=== PATIENT | male | born 1990 | race Caucasian/White ===

== ENCOUNTER 2016-06-26 17:03 | Emergency (ER) | payer OTHER ==
[~2016-06-26] VITALS: Ht 175.3 cm; Wt 90.7 kg
[~2016-06-26 17:03] MED LIST: ALPR1TAB2; HYDR-1421
[2016-06-26 21:18] VITALS: BP 148/86
[2016-06-27] MEDS ORDERED: HYDROcodone-ACET 10/325MG TAB PO ONE (00:30)
[2016-06-27] MEDS ORDERED: ALPRAZolam 0.5 MG TAB PO ONE (00:30)
== END 2016-06-27 01:15 | disposition home or self-care (01) ==
LOC: ER 17:07
DX: G89.29 Other chronic pain (principal); M54.9 Dorsalgia, unspecified; F41.9 Anxiety disorder, unspecified; F17.210 Nicotine dependence, cigarettes, uncomplicated; Z76.0 Encounter for issue of repeat prescription

== ENCOUNTER 2017-03-22 00:29 | Emergency (ER) | payer MEDICAID, OTHER ==
[~2017-03-22] VITALS: Ht 177.8 cm; Wt 86.2 kg
[2017-03-22 00:57] VITALS: BP 144/75
[2017-03-22] MEDS ORDERED: HYDROcodone-ACET 10/325MG TAB PO ONE (01:15)
[2017-03-22] MEDS ORDERED: CYCLOBENZAPRINE HCL 10 MG TAB PO ONE (03:45)
[2017-03-22] MEDS ORDERED: CYCLOBENZAPRINE HCL 10 MG TAB ONE (03:51)
== END 2017-03-22 04:00 | disposition home or self-care (01) ==
LOC: ER 00:29 → EDBD 00:29 → ER 04:00
DX: M54.12 Radiculopathy, cervical region (principal); F17.210 Nicotine dependence, cigarettes, uncomplicated; I10 Essential (primary) hypertension
CPT/HCPCS: 72040

== ENCOUNTER 2017-11-15 17:27 | Emergency (ER) | payer MEDICAID ==
[~2017-11-15] VITALS: Ht 177.8 cm; Wt 95.3 kg
[2017-11-15] MEDS ORDERED: SODIUM CHLORIDE 0.9% 1,000 ML IVB ONE (17:55)
[2017-11-15 18:14] LABS: Basophils # (auto) 0 uL; Basophils % (auto) 0.4 % (0.0-2.0); Eosinophils # (auto) 0.1 uL; Eosinophils % (auto) 1.4 % (0.0-7.0); Hematocrit 44.1 % (41.0-53.0); Hemoglobin 14.9 g/dL (13.5-17.5); Lymphocytes # (auto) 2.6 uL; Mean Corpuscular Hemoglobin 31.1 pg (28.0-32.0); Mean Corpuscular Hgb Conc. 33.7 g/dL (32.0-36.0); Mean Corpuscular Volume 92.4 fL (80.0-100.0); Monocytes # (auto) 0.4 uL; Monocytes % (auto) 3.7 % (0.0-12.0); Neutrophils # (auto) 6.5 uL; Neutrophils % (auto) 67.5 % (37.0-80.0); Platelet Count (auto) 315 10^3/uL (140-450); Red Blood Cells 4.77 10^6/uL (4.5-5.90); White Blood Cell 9.6 10^3/uL (4.4-10.8)
[2017-11-15 18:27] LABS: Alanine Aminotransferase 58 U/L (16-61); Albumin 4.3 g/dL (3.4-5.0); Alkaline Phosphatase 56 U/L (45-117); Anion Gap 6 (5-15); Aspartate Aminotransferase 22 U/L (15-37); BUN/Creatinine Ratio 13.4; Bilirubin, Total 0.2 mg/dL (0.2-1.0); Blood Alcohol < 3.0 mg/dL (0-5); Blood Urea Nitrogen 15 mg/dL (7-18); Calcium 8.3 mg/dL (8.5-10.1); Carbon Dioxide 26 mmol/L (21-32); Chloride 108 mmol/L (98-107); GFR African American 101 mL/min; GFR Non-African American 84 mL/min; Glucose 118 mg/dL (74-106); Potassium 3.8 mmol/L (3.5-5.1); Sodium 140 mmol/L (136-145); Total Protein 7.5 g/dL (6.4-8.2)
[2017-11-15 20:13] LABS: Amphetamine Screen, Urine NEGATIVE (NEGATIVE); Barbiturate Scree,Urine NEGATIVE (NEGATIVE); Benzodiazephine Screen, Urine POSITIVE (NEGATIVE); Cannabinoid Screen, Urine POSITIVE (NEGATIVE); Cocaine Screen, Urine NEGATIVE (NEGATIVE); Opiate Scree,Urine NEGATIVE (NEGATIVE); Phencyclidine Screen, Urine NEGATIVE (NEGATIVE)
[2017-11-15 20:23] VITALS: BP 115/83
== END 2017-11-15 20:24 | disposition home or self-care (01) ==
LOC: ER 17:27 → EDBD 17:27 → ER 20:24
DX: T40.2X1A Poisoning by other opioids, accidental (unintentional), initial encounter (principal); I10 Essential (primary) hypertension; F17.210 Nicotine dependence, cigarettes, uncomplicated; F12.10 Cannabis abuse, uncomplicated; Z79.899 Other long term (current) drug therapy; Y92.89 Other specified places as the place of occurrence of the external cause
CPT/HCPCS: 36415; 80053; 80307; 80320; 85025; 94761

== ENCOUNTER 2018-02-12 23:08 | Emergency (ER) | payer MEDICAID ==
[~2018-02-12] VITALS: Ht 175.3 cm; Wt 95.3 kg
[2018-02-13 01:13] VITALS: BP 137/63
[2018-02-13] MEDS ORDERED: IBUPROFEN 600 MG TAB PO ONE (02:15)
[2018-02-13] MEDS ORDERED: HYDROcodone-ACET 10/325MG TAB PO ONE (02:15)
== END 2018-02-13 02:49 | disposition home or self-care (01) ==
LOC: EDBD 23:08 → ER 23:08
DX: S00.83XA Contusion of other part of head, initial encounter (principal); I10 Essential (primary) hypertension; F17.210 Nicotine dependence, cigarettes, uncomplicated; F12.90 Cannabis use, unspecified, uncomplicated; Z79.899 Other long term (current) drug therapy; Y09 Assault by unspecified means; Y93.89 Activity, other specified; Y99.8 Other external cause status; Y92.89 Other specified places as the place of occurrence of the external cause
CPT/HCPCS: 70450; 70486; 71046

== ENCOUNTER 2018-02-14 15:02 | Emergency (ER) | payer MEDICAID ==
[~2018-02-14] VITALS: Ht 175.3 cm; Wt 95.3 kg
[2018-02-14 15:13] VITALS: BP 141/81
[2018-02-14 19:41] LABS: Basophils # (auto) 0 uL; Basophils % (auto) 0.2 % (0.0-2.0); Eosinophils # (auto) 0.1 uL; Eosinophils % (auto) 1.1 % (0.0-7.0); Hematocrit 45.3 % (41.0-53.0); Hemoglobin 15.3 g/dL (13.5-17.5); Lymphocytes # (auto) 1.5 uL; Mean Corpuscular Hemoglobin 30.5 pg (28.0-32.0); Mean Corpuscular Hgb Conc. 33.7 g/dL (32.0-36.0); Mean Corpuscular Volume 90.6 fL (80.0-100.0); Monocytes # (auto) 0.4 uL; Monocytes % (auto) 4.7 % (0.0-12.0); Neutrophils # (auto) 7.3 uL; Platelet Count (auto) 271 10^3/uL (140-450); Red Cell Distribution Width 13.3 % (11.8-14.3); White Blood Cell 9.3 10^3/uL (4.4-10.8)
[2018-02-14] MEDS ORDERED: HYDROcodone-ACET 5/325MG TAB PO ONE (19:45)
[2018-02-14 20:00] LABS: Albumin 4.4 g/dL (3.4-5.0); Calcium 8.7 mg/dL (8.5-10.1); Potassium 3.5 mmol/L (3.5-5.1)
[2018-02-14] MEDS ORDERED: LORazepam 0.5 MG TAB PO ONE (20:00)
[2018-02-14 20:01] LABS: Salicylate < 1.7 mg/dL (2.8-20.0)
[2018-02-14 20:01] LABS: Alcohol, Urine < 3.0 mg/dL (0-5); Amphetamine Screen, Urine NEGATIVE (NEGATIVE); Barbiturate Scree,Urine NEGATIVE (NEGATIVE); Benzodiazephine Screen, Urine POSITIVE (NEGATIVE); Cannabinoid Screen, Urine POSITIVE (NEGATIVE); Cocaine Screen, Urine NEGATIVE (NEGATIVE); Opiate Scree,Urine NEGATIVE (NEGATIVE); Phencyclidine Screen, Urine NEGATIVE (NEGATIVE)
[2018-02-14 20:02] LABS: Urine Bacteria NONE SEEN /hpf (None Seen); Urine Blood Negative /uL (Negative); Urine Mucus FEW (None Seen); Urine Specific Gravity 1.017 (1.001-1.035); Urine WBC 1 /hpf (0 - 3)
[2018-02-14 20:04] LABS: BUN/Creatinine Ratio 16.5; Bilirubin, Total 0.3 mg/dL (0.2-1.0); Total Protein 7.5 g/dL (6.4-8.2)
[2018-02-14 20:27] LABS: Acetaminophen < 2.0 ug/mL (10-30)
== END 2018-02-14 21:54 | disposition home or self-care (01) ==
LOC: ER 15:02
DX: H72.92 Unspecified perforation of tympanic membrane, left ear (principal); T70 Effects of air pressure and water pressure; R45.851 Suicidal ideations; I10 Essential (primary) hypertension; F17.210 Nicotine dependence, cigarettes, uncomplicated; F12.90 Cannabis use, unspecified, uncomplicated; X58.XXXS Exposure to other specified factors, sequela
CPT/HCPCS: 36415; 80053; 80307; 80320; 80329; 81001; 84443; 85025

== ENCOUNTER 2018-09-21 21:28 | Emergency (ER) | payer MEDICAID ==
[~2018-09-21] VITALS: Ht 175.3 cm; Wt 97.5 kg
[2018-09-21 23:00] LABS: Basophils # (auto) 0 uL; Basophils % (auto) 0.5 % (0.0-2.0); Eosinophils # (auto) 0.1 uL; Eosinophils % (auto) 2.3 % (0.0-7.0); Hematocrit 40.8 % (41.0-53.0); Hemoglobin 13.9 g/dL (13.5-17.5); Lymphocytes # (auto) 2.1 uL; Lymphocytes % (auto) 36.4 % (10.0-50.0); Mean Corpuscular Hemoglobin 30.8 pg (28.0-32.0); Mean Corpuscular Volume 90.8 fL (80.0-100.0); Monocytes # (auto) 0.3 uL; Monocytes % (auto) 5.2 % (0.0-12.0); Neutrophils # (auto) 3.3 uL; Neutrophils % (auto) 55.6 % (37.0-80.0); Platelet Count (auto) 291 10^3/uL (140-450); Red Cell Distribution Width 13.2 % (11.8-14.3); White Blood Cell 5.9 10^3/uL (4.4-10.8)
[2018-09-21 23:20] LABS: Acetaminophen < 2.0 ug/mL (10-30); Alanine Aminotransferase 36 U/L (16-61); Albumin 3.9 g/dL (3.4-5.0); Anion Gap 8 (5-15); Aspartate Aminotransferase 11 U/L (15-37); Blood Alcohol < 3.0 mg/dL (0-5); Blood Urea Nitrogen 20 mg/dL (7-18); Calcium 8.2 mg/dL (8.5-10.1); Carbon Dioxide 26 mmol/L (21-32); Chloride 108 mmol/L (98-107); GFR African American 148 mL/min; GFR Non-African American 122 mL/min; Glucose 107 mg/dL (74-106); Potassium 3.9 mmol/L (3.5-5.1); Salicylate < 1.7 mg/dL (2.8-20.0); Sodium 142 mmol/L (136-145)
[2018-09-21 23:23] LABS: Alkaline Phosphatase 63 U/L (45-117); Bilirubin, Total 0.2 mg/dL (0.2-1.0); Total Protein 6.4 g/dL (6.4-8.2)
[2018-09-22 00:07] LABS: Urine Bacteria FEW /hpf (None Seen); Urine Blood Negative /uL (Negative); Urine Mucus FEW (None Seen); Urine WBC <1 /hpf (0 - 3)
[2018-09-22 00:23] LABS: Alcohol, Urine < 3.0 mg/dL (0-5); Amphetamine Screen, Urine NEGATIVE (NEGATIVE); Barbiturate Scree,Urine NEGATIVE (NEGATIVE); Benzodiazephine Screen, Urine POSITIVE (NEGATIVE); Cannabinoid Screen, Urine POSITIVE (NEGATIVE); Cocaine Screen, Urine NEGATIVE (NEGATIVE); Opiate Scree,Urine NEGATIVE (NEGATIVE); Phencyclidine Screen, Urine NEGATIVE (NEGATIVE)
[2018-09-22] MEDS ORDERED: OXYCODONE W/ ACETAMINOPHEN 5/325MG TABLET PO ONE ×2 (09:15→11:00)
[2018-09-22 16:01] VITALS: BP 134/78
== END 2018-09-22 16:15 | disposition home or self-care (01) ==
LOC: ER 21:31
DX: F32.9 Major depressive disorder, single episode, unspecified (principal); F12.10 Cannabis abuse, uncomplicated; F13.10 Sedative, hypnotic or anxiolytic abuse, uncomplicated; F41.9 Anxiety disorder, unspecified; I10 Essential (primary) hypertension; F17.210 Nicotine dependence, cigarettes, uncomplicated
CPT/HCPCS: 36415; 80053; 80307; 80320; 80329; 81001; 85025

== ENCOUNTER 2019-08-11 11:37 | Emergency (ER) | payer MEDICAID ==
[~2019-08-11] VITALS: Ht 177.8 cm; Wt 99.8 kg
[2019-08-11 12:08] VITALS: BP 127/93
[2019-08-11] MEDS ORDERED: ALPRAZolam 0.5 MG TAB PO ONE (13:30)
== END 2019-08-11 13:50 | disposition home or self-care (01) ==
LOC: ER 11:37
DX: S93.401A Sprain of unspecified ligament of right ankle, initial encounter (principal); F41.9 Anxiety disorder, unspecified; W01.0XXA Fall on same level from slipping, tripping and stumbling without subsequent striking against object, initial encounter; Y93.01 Activity, walking, marching and hiking; Y92.410 Unspecified street and highway as the place of occurrence of the external cause; Y99.8 Other external cause status
CPT/HCPCS: 73610

== ENCOUNTER 2019-10-06 20:22 | Emergency (ER) | payer MEDICAID ==
[~2019-10-06] VITALS: Ht 177.8 cm; Wt 102.1 kg
[2019-10-07 00:11] LABS: Basophils # (auto) 0 10 ^3/uL (0-0.2); Basophils % (auto) 0.2 % (0.0-2.0); Eosinophils # (auto) 0.1 10 ^3/uL (0-0.8); Eosinophils % (auto) 1.2 % (0.0-7.0); Hematocrit 39.9 % (41.0-53.0); Hemoglobin 13.4 g/dL (13.5-17.5); Lymphocytes # (auto) 1.4 10 ^3/uL (0.4-5.4); Lymphocytes % (auto) 26.2 % (10.0-50.0); Mean Corpuscular Hemoglobin 29.8 pg (28.0-32.0); Mean Corpuscular Hgb Conc. 33.6 g/dL (32.0-36.0); Mean Corpuscular Volume 88.9 fL (80.0-100.0); Monocytes # (auto) 0.2 10 ^3/uL (0-1.3); Monocytes % (auto) 4.4 % (0.0-12.0); Neutrophils # (auto) 3.7 10 ^3/uL (1.6-8.6); Platelet Count (auto) 261 10^3/uL (140-450); Red Blood Cells 4.49 10^6/uL (4.5-5.90); Red Cell Distribution Width 13.2 % (11.8-14.3); White Blood Cell 5.5 10^3/uL (4.4-10.8)
[2019-10-07 00:29] LABS: Albumin 3.9 g/dL (3.4-5.0); Anion Gap 5 (5-15); BUN/Creatinine Ratio 19.2; Blood Alcohol < 3.0 mg/dL (0-5); Blood Urea Nitrogen 14 mg/dL (7-18); Calcium 8.6 mg/dL (8.5-10.1); Carbon Dioxide 24 mmol/L (21-32); Chloride 109 mmol/L (98-107); GFR African American 163 mL/min; GFR Non-African American 135 mL/min; Glucose 91 mg/dL (74-106); Potassium 3.5 mmol/L (3.5-5.1); Salicylate 2.2 mg/dL (2.8-20.0); Sodium 138 mmol/L (136-145)
[2019-10-07 00:40] LABS: Alanine Aminotransferase 60 U/L (16-61); Alkaline Phosphatase 65 U/L (45-117); Aspartate Aminotransferase 21 U/L (15-37); Bilirubin, Total 0.5 mg/dL (0.2-1.0); Total Protein 7.2 g/dL (6.4-8.2)
[2019-10-07 00:41] LABS: Acetaminophen < 2.0 ug/mL (10-30)
[2019-10-07] MEDS ORDERED: ALPRAZolam 0.5 MG TAB PO ONE (03:30)
[2019-10-07 04:17] LABS: Urine Bacteria NONE SEEN /hpf (None Seen); Urine Blood Negative /uL (Negative); Urine Mucus MODERATE (None Seen); Urine WBC 1 /hpf (0 - 3)
[2019-10-07 04:42] LABS: Alcohol, Urine < 3.0 mg/dL (0-10); Amphetamine Screen, Urine NEGATIVE (NEGATIVE); Barbiturate Scree,Urine NEGATIVE (NEGATIVE); Benzodiazephine Screen, Urine POSITIVE (NEGATIVE); Cannabinoid Screen, Urine POSITIVE (NEGATIVE); Cocaine Screen, Urine NEGATIVE (NEGATIVE); Opiate Scree,Urine NEGATIVE (NEGATIVE); Phencyclidine Screen, Urine NEGATIVE (NEGATIVE)
[2019-10-07] MEDS ORDERED: OXYCODONE W/ ACETAMINOPHEN 5/325MG TABLET PO ONE (12:00)
[2019-10-07] MEDS: ALPRAZolam 0.5 MG TAB PO SCH (21:08)
[2019-10-07] MEDS: lamoTRIgine 25 MG TAB PO SCH (21:08)
[2019-10-08] MEDS ORDERED: ALPRAZolam 0.5 MG TAB PO PRN (09:00)
[2019-10-08] MEDS: lamoTRIgine 25 MG TAB PO SCH ×2 (10:00→22:23)
[2019-10-08] MEDS ORDERED: lamoTRIgine 25 MG TAB PO ONE (10:00)
[2019-10-08] MEDS: ALPRAZolam 0.5 MG TAB PO SCH ×2 (10:00→22:23)
[2019-10-08] MEDS ORDERED: OXYCODONE W/ ACETAMINOPHEN 5/325MG TABLET PO ONE ×2 (22:00→22:30)
[2019-10-08] MEDS: OXYCODONE W/ ACETAMINOPHEN 5/325MG TABLET PO SCH (22:24)
[2019-10-09] MEDS: lamoTRIgine 25 MG TAB PO SCH (10:16)
[2019-10-09] MEDS: ALPRAZolam 0.5 MG TAB PO SCH (10:16)
[2019-10-09] MEDS: OXYCODONE W/ ACETAMINOPHEN 5/325MG TABLET PO SCH ×2 (10:58→22:00)
[2019-10-09] MEDS ORDERED: OXYCODONE W/ ACETAMINOPHEN 5/325MG TABLET PO SCH (12:00)
[2019-10-09] MEDS ORDERED: OXYCODONE W/ ACETAMINOPHEN 5/325MG TABLET PO ONE (13:45)
[2019-10-10] MEDS ORDERED: ALPRAZolam 0.5 MG TAB ONE (01:35)
[2019-10-10] MEDS ORDERED: ALPRAZolam 0.25 MG TAB ONE (01:36)
[2019-10-10] MEDS: ALPRAZolam 0.5 MG TAB PO SCH ×3 (01:45→21:45)
[2019-10-10] MEDS: lamoTRIgine 25 MG TAB PO SCH ×3 (01:45→21:45)
[2019-10-10] MEDS: OXYCODONE W/ ACETAMINOPHEN 5/325MG TABLET PO SCH ×2 (14:15→21:45)
[2019-10-11] MEDS: lamoTRIgine 25 MG TAB PO SCH (10:19)
[2019-10-11] MEDS ORDERED: ALPRAZolam 0.5 MG TAB ONE (10:20)
[2019-10-11] MEDS: ALPRAZolam 0.5 MG TAB PO SCH ×2 (10:20→22:00)
[2019-10-11] MEDS: OXYCODONE W/ ACETAMINOPHEN 5/325MG TABLET PO SCH ×2 (10:27→22:00)
[2019-10-11] MEDS ORDERED: IBUPROFEN 800 MG TAB PO PRN (17:30)
[2019-10-11] MEDS ORDERED: BACLOFEN 10 MG TAB PO PRN (17:30)
[2019-10-11] MEDS ORDERED: IBUPROFEN 800 MG TAB PO ONE (22:00)
[2019-10-11] MEDS ORDERED: BACLOFEN 10 MG TAB PO ONE (22:00)
[2019-10-12 08:20] VITALS: BP 137/96
[2019-10-12] MEDS: OXYCODONE W/ ACETAMINOPHEN 5/325MG TABLET PO SCH (10:03)
[2019-10-12] MEDS: ALPRAZolam 0.5 MG TAB PO SCH (10:03)
[2019-10-12] MEDS: lamoTRIgine 25 MG TAB PO SCH (10:03)
== END 2019-10-12 17:49 | disposition home or self-care (01) ==
LOC: EDBD 20:22 → EDUNIT# 20:22 → ER 20:22
DX: R45.851 Suicidal ideations (principal); F13.20 Sedative, hypnotic or anxiolytic dependence, uncomplicated; F32.9 Major depressive disorder, single episode, unspecified; F41.9 Anxiety disorder, unspecified; F17.210 Nicotine dependence, cigarettes, uncomplicated; F12.10 Cannabis abuse, uncomplicated; G89.29 Other chronic pain; Z20.828 Contact with and (suspected) exposure to other viral communicable diseases
CPT/HCPCS: 36415; 80053; 80307; 80320; 80329; 81001; 85025; 87426

== ENCOUNTER → 2019-10-27 | Emergency (ER) | payer MEDICAID ==
[~2019-10-27] VITALS: Ht 172.7 cm; Wt 81.6 kg
[~2019-10-27] MED LIST changes: +SODIUM CHLORIDE 0.9% 1,000 ML IV ONE; +THIAMINE 100mg/ml INJ (200mg/2ml VIAL) ONE; +THIAMINE INJ 100 MG in SODIUM CHLORIDE 0.9% 1,000 ML IV ONE
[2019-10-27 04:03] LABS: Basophils # (auto) 0 10 ^3/uL (0-0.2); Basophils % (auto) 0.3 % (0.0-2.0); Eosinophils # (auto) 0.1 10 ^3/uL (0-0.8); Eosinophils % (auto) 2.4 % (0.0-7.0); Hematocrit 39.1 % (41.0-53.0); Hemoglobin 13.2 g/dL (13.5-17.5); Lymphocytes # (auto) 2.1 10 ^3/uL (0.4-5.4); Lymphocytes % (auto) 34.4 % (10.0-50.0); Mean Corpuscular Hgb Conc. 33.7 g/dL (32.0-36.0); Mean Corpuscular Volume 89.1 fL (80.0-100.0); Monocytes # (auto) 0.4 10 ^3/uL (0-1.3); Monocytes % (auto) 6.8 % (0.0-12.0); Neutrophils # (auto) 3.4 10 ^3/uL (1.6-8.6); Neutrophils % (auto) 56.1 % (37.0-80.0); Nucleated Red Blood Cells % 0.1 %; Platelet Count (auto) 248 10^3/uL (140-450); Red Blood Cells 4.39 10^6/uL (4.5-5.90); Red Cell Distribution Width 13.1 % (11.8-14.3)
[2019-10-27 04:17] LABS: Acetaminophen 5.5 ug/mL (10-30); Chloride 106 mmol/L (98-107); Potassium 3.5 mmol/L (3.5-5.1); Salicylate < 1.7 mg/dL (2.8-20.0); Sodium 139 mmol/L (136-145)
[2019-10-27 04:24] LABS: Alanine Aminotransferase 48 U/L (16-61); Albumin 4.1 g/dL (3.4-5.0); Alkaline Phosphatase 53 U/L (45-117); Anion Gap 6 (5-15); Aspartate Aminotransferase 39 U/L (15-37); BUN/Creatinine Ratio 21.7; Bilirubin, Total 0.3 mg/dL (0.2-1.0); Blood Alcohol < 3.0 mg/dL (0-5); Blood Urea Nitrogen 20 mg/dL (7-18); Calcium 8.6 mg/dL (8.5-10.1); Carbon Dioxide 27 mmol/L (21-32); GFR African American 125 mL/min; GFR Non-African American 103 mL/min; Glucose 85 mg/dL (74-106); Magnesium 2.5 mg/dL (1.6-2.6); Total Protein 6.8 g/dL (6.4-8.2)
[2019-10-27 06:00] VITALS: BP 104/60
[2019-10-27 07:05] LABS: Urine Bacteria NONE SEEN /hpf (None Seen); Urine Blood Negative /uL (Negative); Urine Mucus FEW (None Seen); Urine Specific Gravity 1.032 (1.001-1.035); Urine WBC <1 /hpf (0 - 3)
[2019-10-27 07:13] LABS: Alcohol, Urine < 3.0 mg/dL (0-10); Amphetamine Screen, Urine NEGATIVE (NEGATIVE); Barbiturate Scree,Urine NEGATIVE (NEGATIVE); Benzodiazephine Screen, Urine POSITIVE (NEGATIVE); Cannabinoid Screen, Urine NEGATIVE (NEGATIVE); Cocaine Screen, Urine NEGATIVE (NEGATIVE); Opiate Scree,Urine NEGATIVE (NEGATIVE); Phencyclidine Screen, Urine NEGATIVE (NEGATIVE)
== END | disposition home or self-care (01) ==
LOC: ER 02:25
DX: T50.901A Poisoning by unspecified drugs, medicaments and biological substances, accidental (unintentional), initial encounter (principal); S51.812A Laceration without foreign body of left forearm, initial encounter; X58.XXXA Exposure to other specified factors, initial encounter; Y93.89 Activity, other specified; Y92.89 Other specified places as the place of occurrence of the external cause; Y99.8 Other external cause status
CPT/HCPCS: 36415; 70450; 80053; 80307; 80320; 80329; 81001; 83735; 85025; 96365; 99284; J3411; J7030

== ENCOUNTER 2019-10-29 14:48 | Emergency (ER) | payer MEDICAID ==
[~2019-10-29] VITALS: Ht 177.8 cm; Wt 102.1 kg
[~2019-10-29 14:48] MED LIST changes: -SODIUM CHLORIDE 0.9% 1,000 ML IV ONE; -THIAMINE 100mg/ml INJ (200mg/2ml VIAL) ONE; -THIAMINE INJ 100 MG in SODIUM CHLORIDE 0.9% 1,000 ML IV ONE
[2019-10-29 15:08] VITALS: BP 163/88
[2019-10-29] MEDS ORDERED: KETOROLAC TROMETH 60MG/2ML VIAL IM ONE (19:45)
[2019-10-29] MEDS ORDERED: cefTRIAXone SOD 1,000 MG VL IM ONE (19:45)
[2019-10-29] MEDS ORDERED: LIDOCAINE 1% HCL (LOCAL ANESTH.) INJ 20ML MDV ONE (19:49)
[2019-10-29] MEDS ORDERED: ALPRAZolam 0.5 MG TAB ONE (19:56)
[2019-10-29] MEDS ORDERED: LIDOCAINE 1% HCL (LOCAL ANESTH.) INJ 20ML MDV ID ONE (20:00)
[2019-10-29] MEDS ORDERED: ALPRAZolam 0.5 MG TAB PO ONE (20:00)
== END 2019-10-29 21:24 | disposition home or self-care (01) ==
LOC: ER 14:48
DX: S51.812D Laceration without foreign body of left forearm, subsequent encounter (principal); L03.114 Cellulitis of left upper limb; F41.0 Panic disorder [episodic paroxysmal anxiety]; X58.XXXD Exposure to other specified factors, subsequent encounter
CPT/HCPCS: 96372; 99284; J0696; J1885; J2001